=== PATIENT | female | born 1945 | race Caucasian/White ===

== ENCOUNTER 2016-08-23 18:58 | Emergency (ER) | payer MEDICARE, OTHER ==
[~2016-08-23] VITALS: Ht 149.9 cm; Wt 63.6 kg
[~2016-08-23 18:58] MED LIST: ALPH50CA PO; APPLCAP PO; ATOR20TA42 PO; B COTAB3 PO; DIPH50 PO; MAGN400 PO; METO25 PO; METR-1 PO; MORP1INJ45 PO
[2016-08-23 19:02] VITALS: BP 161/77; PULSE 88; RESP 16; TEMP 98.3; O2SAT 98
--- NOTE | 2016-08-23 19:51 | PD ---
Physical Exam Time Seen by Provider: 19:43 Narrative 71 year old female presents for evaluation of LLQ pain sharp, constant. Pt fell 5 days ago and was seen in [facility] [place] following a fall on her back. She thinks the abdominal pain started concurrently with her fall, but was distracted by her back pain. She was given pain medication and developed constipation. She took a laxative and had a normal bowel movement. Pt has significant medical history to include diverticulitis, bowel resection, colon cancer, lung cancer, HTN. She states her pain is similar to when she had peritonitis. Denies fever or chills. Has been nauseous. No urinary symptoms. No vaginal discharge or bleeding. No other symptoms to report. Data Data Last Documented VS Vital Signs Date Time Temp Pulse Resp B/P Pulse Ox O2 Delivery O2 Flow Rate FiO2 08/23/16 19:02 98.3 88 16 161/77 98 MDM Medical Record Reviewed: Yes Supervised Visit with LINDA: No Narrative Course 71 year old female presents to the ED for evaluation of LLQ abdominal pain. Appears uncomfortable in triage, holding her abdomen with occasional moans. VSS. Will transfer to a medical bed when one is available. Condition: Stable Shelly Shaw Aug 23, 2016 19:50
[2016-08-23] MEDS ORDERED: SODIUM CHLOR 0.9% 1000 ML INJ 1,000 ML IV SCH (21:22)
[2016-08-23] MEDS ORDERED: METO25TA3 PO (21:24)
--- NOTE | 2016-08-23 21:29 | PD ---
HPI Chief Complaint: Abdominal Pain Time Seen by Provider: 21:11 Travel History International Travel<30 days: No Contact w/Intl Traveler<30days: No Traveled to known affect area: No History of Present Illness HPI 71-year-old female complains of left flank pain and left-sided abdominal pain. Patient states that she fell 5 days ago. Patient states that she had persistent left flank pain left-sided abdominal pain since then. Patient was seen at [facility] emergency room and had CT scan abdomen pelvis done at that time. Patient states that she was discharged home with prescription for Flexeril and hydrocodone. Patient states that she had persistent pain despite taking the medications. Patient denies any headache. Patient denies any neck pain. Patient any chest pain or shortness of breath. Patient denies nausea vomiting diarrhea. Patient denies any dysuria or frequency. Patient denies any fever chills. Patient states the pain is cramping pain and sharp pain combination, patient denies any pain radiation. On a scale of 1-10 the pain is an 8. Patient has history of diverticulitis and colon cancer status post partial colectomy. Patient has abdominal hernia surgery in the past also. Patient has history of chronic back pain and neuropathy and was on morphine until recently. Patient states that her physician stopped give her the prescription for morphine since the beginning of the month. PFSH Past Medical History Hx Anticoagulant Therapy: No Arthritis: Yes Blood Disorders: No Cancer: Yes (COLON CA) Cardiovascular Problems: Yes ( FEM -POP BYPASS right) High Cholesterol: Yes Chemotherapy: Yes Diabetes: Yes Patient Takes Glucophage: No Diminished Hearing: No Diverticulitis: Yes Endocrine: Yes Gastrointestinal Disorders: Yes (HX OF DIVERTICULITIS AND PERITONITIS) GERD: Yes Genitourinary: No Hepatitis: No Hiatal Hernia: Yes Hypertension: Yes Immune Disorder: No Implanted Vascular Access Dvce: Yes Musculoskeletal: Yes (GOUT) Neurologic: No Psychiatric: No Reproductive: No Respiratory: Yes Immunizations Current: Yes Thyroid Disease: No Ulcer: Yes (HAD COLON RESECTION ; DIVERTICULITIS AND CANCER) Tetanus Vaccination: Unknown Influenza Vaccination: Yes Menopausal: Yes Past Surgical History Abdominal Surgery: Yes (COLON RESECTION- 2008, "3 SURGERIES FOR DIVERTICULITIS AND ULCERS"/ HERNIA) AICD: No Appendectomy: Yes Body Medical Devices: BREAST IMPLANTS ; EYE LENS Cardiac Surgery: No Endocrine Surgery: No Eye Surgery: Yes (BILAT CATARACT EXT) Genitourinary Surgery: No Gynecologic Surgery: No Joint Replacement: No Neurologic Surgery: No Pacemaker: No Thoracic Surgery: No Other Surgery: Yes (BREAST AUGMENTATION AND THEN RECONSTRUCTION AFTER RUPTURE) Social History Alcohol Use: Yes (3 TIMES PER WEEK, 2 GLASSES WINE) Tobacco Use: No (CIGARETTES, 1 PPD X 41 YEARS) Substance Use: No Allergies-Medications (Allergen,Severity, Reaction): Coded Allergies: Gabapentin (Verified Allergy, Intermediate, UPSET STOMACH , 08/23/16) Dilaudid (Verified Allergy, Mild, ITCHING, 08/23/16) SULL[place]AN 2 Inhibitors (Verified Adverse Reaction, Severe, Ulcers, 08/23/16) Celebrex (Verified Adverse Reaction, Intermediate, ULCERS, 08/23/16) Uncoded Allergies: ANSAIDS (Allergy, Intermediate, ULCERS, 07/05/12) Reported Meds & Prescriptions Reported Meds & Active Scripts Active Reported Alpha Lipoic Acid Extra Strength (Alpha-Lipoic Acid) 600 Mg Cap Diphenhydramine HCl (Diphenhydramine HCl (Sleep)) 50 Mg Tab Magnesium Oxide 400 Mg Cap Morphine Sulfate CR (Morphine Sulfate) 15 Mg Tab Lipitor (Atorvastatin Calcium) 20 Mg Tab 20 Mg PO HS Metoprolol Tartrate 25 Mg Tab 25 Mg PO DAILY Review of Systems General / Constitutional: No: Fever Eyes: No: Visual changes HENT: No: Headaches Cardiovascular: No: Chest Pain or Discomfort Respiratory: No: Shortness of Breath Gastrointestinal: Positive: Abdominal Pain Genitourinary: No: Dysuria Musculoskeletal: No: Pain Skin: No Rash Neurologic: No: Weakness Psychiatric: No: Depression Endocrine: No: Polydipsia Hematologic/Lymphatic: No: Easy Bruising Physical Exam Narrative GENERAL: Well-nourished, well-developed patient. SKIN: Focused skin assessment warm/dry. HEAD: Normocephalic. EYES: No scleral icterus. No injection or drainage. NECK: Supple, trachea midline. No JVD or lymphadenopathy. CARDIOVASCULAR: Regular rate and rhythm without murmurs, gallops, or rubs. RESPIRATORY: Breath sounds equal bilaterally. No accessory muscle use. GASTROINTESTINAL: Abdomen soft, nondistended. Patient has mild tenderness on palpation left flank area left low quadrant of the abdomen. No rebound tenderness. No mass. Patient has soft ventral hernia. MUSCULOSKELETAL: No cyanosis, or edema. BACK: Nontender without obvious deformity. No CVA tenderness. Neurologic exam normal. Data Data Last Documented VS Vital Signs Date Time Temp Pulse Resp B/P Pulse Ox O2 Delivery O2 Flow Rate FiO2 08/23/16 21:58 16 98 08/23/16 19:02 98.3 88 161/77 Orders Complete Blood Count With Diff (08/23/16 21:22) Comprehensive Metabolic Panel (08/23/16 21:22) Lipase (08/23/16 21:22) Prothrombin Time / Inr (Pt) (08/23/16 21:22) Act Partial Throm Time (Ptt) (08/23/16 21:22) Urinalysis - C+S If Indicated (08/23/16 21:22) Ct Abd/Pel W Iv Contrast(Rout) (08/23/16 21:22) Iv Access Insert/Monitor (08/23/16 21:22) Ecg Monitoring (08/23/16 21:22) Oximetry (08/23/16 21:22) Sodium Chlor 0.9% 1000 Ml Inj (Ns 1000 M (08/23/16 21:22) Urine Culture (08/23/16 21:45) Morphine Inj (Morphine Inj) (08/23/16 22:30) Ondansetron Inj (Zofran Inj) (08/23/16 22:30) Iohexol 350 Inj (Omnipaque 350 Inj) (08/23/16 23:16) Labs Laboratory Tests Test 08/23/16 21:45 White Blood Count 9.6 TH/MM3 Red Blood Count 4.23 MIL/MM3 Hemoglobin 13.6 GM/DL Hematocrit 40.9 % Mean Corpuscular Volume 96.7 FL Mean Corpuscular Hemoglobin 32.0 PG Mean Corpuscular Hemoglobin 33.1 % Concent Red Cell Distribution Width 14.3 % Platelet Count 193 TH/MM3 Mean Platelet Volume 7.9 FL Neutrophils (%) (Auto) 71.2 % Lymphocytes (%) (Auto) 19.3 % Monocytes (%) (Auto) 7.5 % Eosinophils (%) (Auto) 1.4 % Basophils (%) (Auto) 0.6 % Neutrophils # (Auto) 6.8 TH/MM3 Lymphocytes # (Auto) 1.8 TH/MM3 Monocytes # (Auto) 0.7 TH/MM3 Eosinophils # (Auto) 0.1 TH/MM3 Basophils # (Auto) 0.1 TH/MM3 CBC Comment DIFF FINAL Differential Comment Prothrombin Time 11.6 SEC Prothromb Time International 1.0 RATIO Ratio Activated Partial 27.0 SEC Thromboplast Time Urine Color YELLOW Urine Turbidity HAZY Urine pH 5.5 Urine Specific [place] 1.016 Urine Protein TRACE mg/dL Urine Glucose (UA) NEG mg/dL Urine Ketones 40 mg/dL Urine Occult Blood NEG Urine Nitrite NEG Urine Bilirubin NEG Urine Urobilinogen LESS THAN 2.0 MG/DL Urine Leukocyte Esterase TRACE Urine RBC LESS THAN 1 /hpf Urine WBC 1 /hpf Urine Squamous Epithelial <1 /hpf Cells Urine Bacteria MOD /hpf Urine Mucus FEW /lpf Microscopic Urinalysis Comment CULTURE INDICATED Sodium Level 136 MEQ/L Potassium Level 4.0 MEQ/L Chloride Level 98 MEQ/L Carbon Dioxide Level 27.8 MEQ/L Anion Gap 10 MEQ/L Blood Urea Nitrogen 21 MG/DL Creatinine 1.20 MG/DL Estimat Glomerular Filtration 44 ML/MIN Rate Random Glucose 117 MG/DL Calcium Level 10.0 MG/DL Total Bilirubin 1.0 MG/DL Aspartate Amino Transf 25 U/L (AST/SGOT) Alanine Aminotransferase 46 U/L (ALT/SGPT) Alkaline Phosphatase 90 U/L Total Protein 8.3 GM/DL Albumin 4.1 GM/DL Lipase 365 U/L MDM Medical Decision Making Medical Screen Exam Complete: Yes Emergency Medical Condition: Yes Interpretation(s) Last Impressions Abdomen/Pelvis CT 08/23/162121 Signed Impressions: Service Date/Time: Tuesday, August 23, 2016 23:14 - CONCLUSION: Status post right hemicolectomy. No small bowel thickening or dilatation is identified. Marked atherosclerotic disease. Eventration of the anterior abdominal wall. Erik Rico MD 2:28 AM. CBC within normal limit. BUN 21. Creatinine 1.20. UA positive for bacteria. Negative for WBC RBC. Differential Diagnosis Differential diagnosis including contusion, intra-abdominal organ injury, back injury. Narrative Course 71-year-old female with left-sided flank pain and left-sided abdominal pain. Status post fall 5 days ago. Diagnosis Primary Impression: Recurrent abdominal pain Patient Instructions: General Instructions Additional Instructions: Medications as needed for pain. Follow-up with personal physician. Return if worse. Med/Other Pt SpecificInfo: Prescription(s) given Scripts Tramadol (Ultram)50 Mg Tab50 Mg PO Q6H PRN (PAIN) #30 TAB Prov:Alberto Dodge MD 08/24/16 Methocarbamol (Robaxin)750 Mg Que531 Mg PO QID #40 TAB Prov:Alberto Dodge MD 08/24/16 Disposition: 01 DISCHARGE HOME Condition: Stable Alberto Dodge MD Aug 23, 2016 21:29
[2016-08-23 21:58] VITALS: RESP 16; O2SAT 98
[2016-08-23] MEDS ORDERED: MORP15TA73 (22:01)
[2016-08-23] MEDS ORDERED: MAGN400C (22:01)
[2016-08-23] MEDS ORDERED: ALPH1CAP3 (22:01)
[2016-08-23] MEDS ORDERED: DIPH50TA3 (22:01)
[2016-08-23] MEDS ORDERED: LIPI20TA PO (22:01)
[2016-08-23 22:02] LABS: AUTOMATED NEUTROPHIL # 6.8 TH/MM3 (1.8-7.7); BASOPHIL # 0.1 TH/MM3 (0-0.2); BASOPHIL % 0.6 % (0.0-2.0); EOSINOPHIL # 0.1 TH/MM3 (0-0.4); EOSINOPHIL % 1.4 % (0.0-4.0); HEMATOCRIT 40.9 % (35.0-46.0); HEMO FLAGS DIFF FINAL; LYMPH % 19.3 % (9.0-44.0); LYMPHOCYTE # 1.8 TH/MM3 (1.0-4.8); MEAN CELL VOLUME 96.7 FL (80.0-100.0); MEAN CORPUSCULAR HGB CONC 33.1 % (32.0-36.0); MONO % 7.5 % (0.0-8.0); NEUT % 71.2 % (16.0-70.0); PLATELET COUNT 193 TH/MM3 (150-450); RED BLOOD COUNT 4.23 MIL/MM3 (4.00-5.30); RED CELL DISTRIBUTION WIDTH 14.3 % (11.6-17.2); WHITE BLOOD COUNT 9.6 TH/MM3 (4.0-11.0)
[2016-08-23 22:03] LABS: BACTERIA, URINE MOD /hpf; BLOOD, URINE NEG (NEG); COMMENT (UR) CULTURE INDICATED; CULTURE IF INDICATED CULTURE INDICATED; GLUCOSE,URINE NEG (NEG); KETONE, URINE 40 mg/dL (NEG); MUCUS URINE FEW /lpf (OCC); NITRITE,URINE NEG (NEG); PH, URINE 5.5 (5.0-8.5); SQUAMOUS EPITHELIAL CELL URINE <1 /hpf (0-5); URINE COLOR YELLOW (YELLW/STRAW)
[2016-08-23 22:14] LABS: PROTHROMBIN TIME - PATIENT 11.6 SEC (9.8-11.6)
[2016-08-23 22:18] LABS: ANION GAP 10 MEQ/L (5-15); AST (GOT) 25 U/L (15-37); BICARBONATE 27.8 MEQ/L (21.0-32.0); BLOOD UREA NITROGEN 21 MG/DL (7-18); CHLORIDE 98 MEQ/L (98-107); GLOMERULAR FILTRATION RATE 44 ML/MIN (>89); SODIUM (NA) 136 MEQ/L (136-145)
[2016-08-23 22:22] LABS: ALKALINE PHOSPHATASE 90 U/L (45-117); ALT (GPT) 46 U/L (10-53)
[2016-08-23] MEDS ORDERED: ONDANSETRON HCL 4 MG/2 ML VIAL IV PUSH ONE (22:30)
[2016-08-23] MEDS ORDERED: MORPHINE SULFATE 4 MG/ML INJ IV PUSH ONE (22:30)
[2016-08-23] MEDS ORDERED: IOHEXOL 350 MG/ML 10 ML VIAL (for RAD DIAG) IV ONE (23:16)
--- NOTE | 2016-08-23 23:32 | RADRPT ---
EXAM DATE/TIME: 08/23/2016 23:14 [facility] COMPARISON: No previous studies available for comparison. INDICATIONS : Fell 5 days ago. Complains of left sided pain. IV CONTRAST: 80 cc Omnipaque 350 (iohexol) IV ORAL CONTRAST: No oral contrast ingested. RADIATION DOSE: 8.71 CTDIvol (mGy) MEDICAL HISTORY : Carcinoma, colon. Ulcers. Hypertension.Hernia. SURGICAL HISTORY : Appendectomy. Colon resection. ENCOUNTER: Initial ACUITY: 4 - 6 days PAIN SCALE: 8/10 LOCATION: Left abdomen TECHNIQUE: Volumetric scanning of the abdomen and pelvis was performed. Using automated exposure control and ad justment of the mA and/or kV according to patient size, radiation dose was kept as low as reasonably achievable to obtain optimal diagnostic quality images. FINDINGS: LOWER LUNGS: The visualized lower lungs are clear. Bilateral breast augmentation LIVER: Homogeneous density without lesion. There is no dilation of the biliary tree. No calcified gallston es. Continued mild extrahepatic biliary tree dilatation SPLEEN: Normal size without lesion. PANCREAS: Within normal limits. KIDNEYS: Normal in size and shape. There is no mass, stone or hydronephrosis. ADRENAL GLANDS: Within normal limits. VASCULAR: There is no aortic aneurysm. Severe atherosclerotic disease BOWEL/MESENTERY: Status post right hemicolectomy. The stomach, small bowel, and colon demonstrate no acute abnormality . There is no free intraperitoneal air or fluid. ABDOMINAL WALL: Anterior eventration of the abdominal wall containing portions of the colon RETROPERITONEUM: There is no lymphadenopathy. BLADDER: No wall thickening or mass. REPRODUCTIVE: Within normal limits. INGUINAL: There is no lymphadenopathy or hernia. MUSCULOSKELETAL: Pronounced rightward lumbar scoliosis. Sclerosis of the femoral heads raise the possibility of either osteoarthritis or avascular necrosis. CONCLUSION: Status post right hemicolectomy. No small bowel thickening or dilatation is identified. Marked athero sclerotic disease. Eventration of the anterior abdominal wall. Erik Rico MD on August 23, 2016 at 23:27 Board Certified Radiologist. This report was verified electronically.
[2016-08-24] MEDS ORDERED: ROBA750T PO (02:33)
[2016-08-24] MEDS ORDERED: ULTR50TA5 PO (02:33)
== END 2016-08-24 03:10 | disposition home or self-care (01) ==
LOC: NEPE 18:58
DX: R10.9 Unspecified abdominal pain (principal); M54.9 Dorsalgia, unspecified; E78.00 Pure hypercholesterolemia, unspecified; E11.9 Type 2 diabetes mellitus without complications; K21.9 Gastro-esophageal reflux disease without esophagitis; I10 Essential (primary) hypertension; B96.20 Unspecified Escherichia coli [E. coli] as the cause of diseases classified elsewhere
CPT/HCPCS: 74177; 80053; 81001; 83690; 85025; 85610; 85730; 87077; 87086; 87186; 96374; 96375; 99284; J2270; J2405; J7030; Q9967

== ENCOUNTER 2016-10-01 07:20 | Day surgery (SDC) | payer MEDICARE, OTHER ==
[2016-10-01] VITALS (7 sets, daily range): BP systolic 125–153; BP diastolic 52–98; PULSE 80–89; RESP 20; TEMP 97.7; O2SAT 95–99
[~2016-10-01] VITALS: Ht 149.9 cm; Wt 63.2 kg
[~2016-10-01 07:20] MED LIST changes: +ALPH1CAP3; -ALPH50CA PO; -APPLCAP PO; -ATOR20TA42 PO; -B COTAB3 PO; -DIPH50 PO; +DIPH50TA3; +LIPI20TA PO; -MAGN400 PO; +MAGN400C; -METO25 PO; +METO25TA3 PO; -METR-1 PO; +MORP15TA73; -MORP1INJ45 PO; +ROBA750T PO; +ULTR50TA5 PO
[2016-10-01] MEDS ORDERED: CO Q100C9 PO (07:53)
[2016-10-01] MEDS ORDERED: ALPH1CAP2 PO (07:53)
[2016-10-01] MEDS ORDERED: LACT1CAP18 PO (07:53)
[2016-10-01] MEDS ORDERED: DIPH50CA PO (07:53)
[2016-10-01] MEDS ORDERED: FENT12DI T-DERMAL (07:53)
[2016-10-01] MEDS ORDERED: MILK500C2 PO (07:53)
[2016-10-01] MEDS ORDERED: OCUVTAB4 PO (07:53)
[2016-10-01] MEDS ORDERED: MULT1TAB59 PO (07:53)
[2016-10-01] MEDS ORDERED: SODIUM CHLOR 0.9% 1000 ML INJ 1,000 ML IV SCH (08:00)
[2016-10-01] MEDS ORDERED: ceFAZolin 2 GM PREMIX 50 ML IV SCH (08:00)
[2016-10-01] MEDS ORDERED: POVIDONE IODINE 5% (ANTISEPSIS KIT) 4 APPLICATIONS EACH NARE PRN (08:15)
[2016-10-01] MEDS ORDERED: INSULIN HUMAN REGULAR 1,000 UNITS/10 ML VIAL SQ PRN (08:15)
[2016-10-01] MEDS ORDERED: CHLORHEXIDINE GLUCONATE 2 % 1 PACK (2 CLOTHS) TOPICAL PRN (08:15)
[2016-10-01] MEDS ORDERED: LACTATED RINGER'S 1000 ML IV PRN (08:15)
[2016-10-01] MEDS ORDERED: METOPROLOL TARTRATE 25 MG TAB PO PRN (08:15)
[2016-10-01] MEDS ORDERED: SODIUM CHLORID 0.9% 500 ML IV PRN (08:15)
[2016-10-01 08:32] LABS: AUTOMATED NEUTROPHIL # 5.1 TH/MM3 (1.8-7.7); BASOPHIL # 0.1 TH/MM3 (0-0.2); EOSINOPHIL # 0.2 TH/MM3 (0-0.4); EOSINOPHIL % 2.7 % (0.0-4.0); HEMO FLAGS DIFF FINAL; LYMPH % 19.3 % (9.0-44.0); LYMPHOCYTE # 1.4 TH/MM3 (1.0-4.8); MEAN CORPUSCULAR HEMOGLOBIN 31.8 PG (27.0-34.0); MEAN CORPUSCULAR HGB CONC 32.2 % (32.0-36.0); MONO % 8.1 % (0.0-8.0); NEUT % 67.9 % (16.0-70.0); PLATELET COUNT 171 TH/MM3 (150-450); RED BLOOD COUNT 3.74 MIL/MM3 (4.00-5.30); RED CELL DISTRIBUTION WIDTH 14.1 % (11.6-17.2); WHITE BLOOD COUNT 7.5 TH/MM3 (4.0-11.0)
[2016-10-01 08:38] LABS: APTT (PATIENT) 25.2 SEC (24.3-30.1); BICARBONATE 25.2 MEQ/L (21.0-32.0); POTASSIUM 3.8 MEQ/L (3.5-5.1); PROTHROMBIN TIME - PATIENT 11.6 SEC (9.8-11.6)
[2016-10-01] MEDS ORDERED: KETAMINE HCL 500 MG/5 ML VIAL ONE (09:55)
[2016-10-01] MEDS ORDERED: BUPIVACAINE HCL PF 0.75% 30 ML VIAL ONE (10:43)
[2016-10-01] MEDS ORDERED: MIDAZOLAM HCL 2 MG/2 ML VIAL ONE (11:26)
--- NOTE | 2016-10-01 11:35 | PD.RAD ---
Post Procedure Progress Note Pre Procedure Diagnosis: (1) Lumbar compression fracture Post Procedure Diagnosis: (1) Lumbar compression fracture Procedure Date: October 01, 2016 Supervising Radiologist: James Bruce Proceduralist/Assist: RT Sam(R)() Anesthesia: General Plan of Activity Patient to Unit: ROPU Patient Condition: Good See PACS Report for procedural detail/treatment Spinal Procedure Kyphoplasty L1 Total Bone Cement (CCs): 3 James Bruce MD October 01, 2016 11:35
[2016-10-01] MEDS ORDERED: oxyCODONE/ACETAMINOPHEN 5 MG/325 MG TAB PO ONE ×2 (12:15→14:00)
--- NOTE | 2016-10-01 14:40 | RADRPT ---
EXAM DATE/TIME: 10/01/2016 11:16 [facility] COMPARISON: No previous studies available for comparison. INDICATIONS : Patient presents with lumbar fracture and pain in need of kyphoplasty for pain management. MEDICAL HISTORY : Gout Hx diverticulitis and peritonitis GERD Lung and colon cancer SURGICAL HISTORY : colon resection 2009 Hernia repair Appy Fempop bypass Right Bilat cataract sx Breast augmentation ENCOUNTER: Initial ACUITY: 4-6 days PAIN SCORE: 8/10 LOCATION: Lower back pain. FLUORO TIME: 20.5 minutes IMAGE SERIES: 0 LEVEL: L1 MEDICATION(S): 1.) 2 g cefazolin (Ancef) IV DEVICE: 1. 3 cc AVAMax bone cement PROCEDURE : 1. Fluoroscopically-guided kyphoplasty. 2. Conscious sedation with continuous EKG and oximetry monitoring. The risks, benefits and alternatives to the procedure were explained and verbal and written consent w as obtained. The site was prepped in sterile fashion. Full sterile technique was used, including ca p, mask, sterile gloves and gown and a large sterile sheet. Hand hygiene and 2% chlorhexidine and/or betadine/alcohol prep was utilized per protocol for cutaneous antisepsis. The skin and subcutaneous tissues were infiltrated with local anesthetic solution. With fluoroscopic guidance via the above described approach access was gained to the vertebral body. Kyphoplasty was performed with cavity creation as above. The prescribed cement volume was placed. Post procedure images demonstrate cement confined to the vertebral body. Conscious sedation was performed with the prescribed dosages and duration as above in the presence of an independent trained radiology nurse to assist in the monitoring of the patient. EKG and oximetry remained stable throughout the procedure. The patient tolerated the procedure well and there were n o complications. The patient was sent to post anesthesia recovery in stable condition. CONCLUSION: Uncomplicated kyphoplasty as above. James Bruce MD on October 01, 2016 at 14:38 Board Certified Radiologist. This report was verified electronically.
== END 2016-10-01 14:15 | disposition home or self-care (01) ==
LOC: HSDC 07:20 → HRIP 07:34 → HSDC 14:15
PROVIDERS: ATTEND Family Medicine
DX: S32.010A Wedge compression fracture of first lumbar vertebra, initial encounter for closed fracture (principal)
CPT/HCPCS: 22514; 80048; 85025; 85610; 85730; J0690; J2250; J3010; J7030

== ENCOUNTER 2016-10-12 13:11 | Day surgery (SDC) | payer MEDICARE, OTHER ==
[~2016-10-12 13:11] MED LIST changes: +ALPH1CAP2 PO; -ALPH1CAP3; +CO Q100C9 PO; +DIPH50CA PO; -DIPH50TA3; +FENT12DI T-DERMAL; +LACT1CAP18 PO; -MAGN400C; +MILK500C2 PO; -MORP15TA73; +MULT1TAB59 PO; +OCUVTAB4 PO; -ROBA750T PO; -ULTR50TA5 PO
[2016-10-12] MEDS ORDERED: CYCL1TAB29 PO (13:31)
[2016-10-12 13:35] VITALS: BP 144/74; PULSE 93; RESP 18; TEMP 98.8; O2SAT 97
--- NOTE | 2016-10-13 07:44 | RADRPT ---
EXAM DATE/TIME: 10/12/2016 13:45 [facility] COMPARISON : No previous studies available for comparison. INDICATIONS : f/u kyphoplasty OBJECTIVE: Temperature: 98.8 Heart Rate: 93 Blood Pressure: 144/74 Respiratory: 19 Oximetry: 97 PNEUMONIA VACCINE: HISTORY OF PRESENT ILLNESS: 71-year-old white female with history of chronic back pain secondary to lumbar dextroscoliosis with d egenerative spondylosis. She sustained an acute L1 compression fracture following a fall last month a nd underwent successful L1 kyphoplasty on October 01, 2016. Patient reports pain now in the lower lumbar region. She denies any lower extremity radiculopathy, bowel or urinary incontinence. Pain is reported ly constant and not related to change in position. Patient rates the pain as 7-9/10. PAST MEDICAL HISTORY : 1. htn 2. elevated choleterol 3. diverticulitis 4. colon cancer 5. lung cancer 6. gout PAST SURGICAL HISTORY : 1. Appendectomy. 2. Kyphoplasty. 3. colon resection 4. bilateral cataract 5. aicd implanted SOCIAL HISTORY : Social alcohol use. Tobacco;former. Patient has a ALLERGIES: 1. ansaids 2. co2 inhibitors 3. celebrex,dilaudid 4. gabapentin MEDICATIONS: 1. metoprolol 25 mg q.d. lipitor 20 mg q.d. alpha lipoic acid 100 mg q.h.s. milk thistle 500 mg q.d. diphenhydramine 50 mg q.h.s. lactobacillus fentanyl patch 75 mg prn coenzyme q 10 100 mg q.d. flexeril 10 mg t.i.d. PHYSICAL EXAMINATION: CV: Regular rate and rhythm. Lungs: Clear to auscultation. Back: No significant tenderness on palpation of the spinous processes. Obvious tenderness paraspinal muscle s with significant tenderness particularly along the right paraspinal region in the lower lumbar spin e corresponding to approximately L3-4 level. IMAGING STUDIES: Procedural radiographs from 10/01/16 were reviewed. Good technical result at L1. ASSESSMENT: Patient has had an adequate response to L1 kyphoplasty and appears to have moderate to severe muscle spasms in the lower lumbar spine likely related to exacerbation of her marked dextroscoliosis/degener ative spondylosis in this region. PLAN: Liza has been under the care of a pain specialist for chronic back pain. Since her current symptoms appear to represent exacerbation of her chronic condition, she was referred to followup with her pain specialist. She was also encouraged to followup with our office if she has any additional concerns o r new symptoms. TIME SPENT: I spent approximately 20 minutes directly examining and discussing the management plan with the patie ntJose Knott MD on October 13, 2016 at 7:29 Board Certified Radiologist. This report was verified electronically.
== END 2016-10-12 14:44 | disposition home or self-care (01) ==
LOC: HROP 13:11 → HRIP 13:16 → HROP 14:44
PROVIDERS: ATTEND Radiology Body Imaging
DX: G89.29 Other chronic pain (principal); M47.896 Other spondylosis, lumbar region; M41.86 Other forms of scoliosis, lumbar region; M62.838 Other muscle spasm; I10 Essential (primary) hypertension; Z85.118 Personal history of other malignant neoplasm of bronchus and lung; Z85.038 Personal history of other malignant neoplasm of large intestine; M10.9 Gout, unspecified; Z95.810 Presence of automatic (implantable) cardiac defibrillator; Z87.891 Personal history of nicotine dependence; Z88.8 Allergy status to other drugs, medicaments and biological substances